=== PATIENT | female | born 1955 | race Caucasian/White ===

== ENCOUNTER 2022-09-29 00:45 | Outpatient (RCR) | payer MEDICARE, BC, SELFPAY ==
[2022-09-29] MEDS: Romosozumab-AQQG 210 MG/2.34 ML SYRINGE SC (11:21)
== END 2022-09-30 23:59 | disposition home or self-care (01) ==
LOC: INF 00:45
PROVIDERS: PCP Internal Medicine; Visit Provider Nurse Practitioner Acute Care
DX: M81.0 Age-related osteoporosis without current pathological fracture (principal)
CPT/HCPCS: 96372; J3590

== ENCOUNTER 2022-10-27 00:59 | Outpatient (RCR) | payer MEDICARE, BC, SELFPAY ==
[2022-10-27] MEDS: Romosozumab-AQQG 210 MG/2.34 ML SYRINGE SC (10:55)
== END 2022-10-31 23:59 | disposition home or self-care (01) ==
LOC: INF 00:59
PROVIDERS: PCP Internal Medicine; Visit Provider Nurse Practitioner Acute Care
DX: M81.0 Age-related osteoporosis without current pathological fracture (principal)
CPT/HCPCS: 96372; J3590

== ENCOUNTER 2022-11-24 01:28 | Outpatient (RCR) | payer MEDICARE, BC, SELFPAY ==
[2022-11-24] MEDS: Romosozumab-AQQG 210 MG/2.34 ML SYRINGE SC (11:07)
== END 2022-11-28 23:59 | disposition home or self-care (01) ==
LOC: INF 01:28
PROVIDERS: PCP Internal Medicine; Visit Provider Nurse Practitioner Acute Care
DX: M81.0 Age-related osteoporosis without current pathological fracture (principal)
CPT/HCPCS: 96372; J3590

== ENCOUNTER 2022-12-22 01:56 | Outpatient (RCR) | payer MEDICARE, BC, SELFPAY ==
[2022-12-22] MEDS: Romosozumab-AQQG 210 MG/2.34 ML SYRINGE SC (11:18)
== END 2022-12-29 23:59 | disposition home or self-care (01) ==
LOC: INF 01:56
PROVIDERS: PCP Internal Medicine; Visit Provider Nurse Practitioner Acute Care
DX: M81.0 Age-related osteoporosis without current pathological fracture (principal)
CPT/HCPCS: 96372; J3590

== ENCOUNTER 2023-01-19 01:18 | Outpatient (RCR) | payer MEDICARE, BC, SELFPAY ==
[2023-01-19] MEDS: Romosozumab-AQQG 210 MG/2.34 ML SYRINGE SC (11:16)
== END 2023-01-28 23:59 | disposition home or self-care (01) ==
LOC: INF 01:18
PROVIDERS: PCP Internal Medicine; Visit Provider Nurse Practitioner Acute Care
DX: M81.0 Age-related osteoporosis without current pathological fracture (principal)
CPT/HCPCS: 96372; J3590

== ENCOUNTER 2023-02-16 01:44 | Outpatient (RCR) | payer MEDICARE, BC, SELFPAY ==
[2023-02-16] MEDS: Romosozumab-AQQG 210 MG/2.34 ML SYRINGE SC (11:17)
== END 2023-02-28 23:59 | disposition home or self-care (01) ==
LOC: INF 01:44
PROVIDERS: PCP Internal Medicine; Visit Provider Nurse Practitioner Acute Care
DX: M81.0 Age-related osteoporosis without current pathological fracture (principal)
CPT/HCPCS: 96372; J3590

== ENCOUNTER 2023-03-16 01:45 | Outpatient (RCR) | payer MEDICARE, BC, SELFPAY ==
[2023-03-16] MEDS: Romosozumab-AQQG 210 MG/2.34 ML SYRINGE SC (06:57)
== END 2023-03-30 23:59 | disposition home or self-care (01) ==
LOC: INF 01:45
PROVIDERS: PCP Internal Medicine; Visit Provider Nurse Practitioner Acute Care
DX: M81.0 Age-related osteoporosis without current pathological fracture (principal)
CPT/HCPCS: 96372; J3590

== ENCOUNTER 2023-04-13 01:30 | Outpatient (RCR) | payer MEDICARE, BC, SELFPAY ==
[2023-04-13] MEDS: Romosozumab-AQQG 210 MG/2.34 ML SYRINGE SC (11:21)
== END 2023-04-30 23:59 | disposition home or self-care (01) ==
LOC: INF 01:30
PROVIDERS: PCP Internal Medicine; Visit Provider Nurse Practitioner Acute Care
DX: M81.0 Age-related osteoporosis without current pathological fracture (principal)
CPT/HCPCS: 96372; J3590

== ENCOUNTER 2023-05-11 01:29 | Outpatient (RCR) | payer MEDICARE, BC, SELFPAY ==
[2023-05-11] MEDS: Romosozumab-AQQG 210 MG/2.34 ML SYRINGE SC (11:28)
== END 2023-05-31 23:59 | disposition home or self-care (01) ==
LOC: INF 01:29
PROVIDERS: PCP Internal Medicine; Visit Provider Nurse Practitioner Acute Care
DX: M81.0 Age-related osteoporosis without current pathological fracture (principal)
CPT/HCPCS: 96372; J3590

== ENCOUNTER 2023-06-08 01:30 | Outpatient (RCR) | payer MEDICARE, BC, SELFPAY ==
[2023-06-08] MEDS: Romosozumab-AQQG 210 MG/2.34 ML SYRINGE SC (10:46)
== END 2023-06-30 23:59 | disposition home or self-care (01) ==
LOC: INF 01:30
PROVIDERS: PCP Internal Medicine; Visit Provider Nurse Practitioner Acute Care
DX: M81.0 Age-related osteoporosis without current pathological fracture (principal)
CPT/HCPCS: 96372; J3590

== ENCOUNTER 2023-07-06 01:12 | Outpatient (RCR) | payer MEDICARE, BC, SELFPAY ==
[2023-07-06] MEDS: Romosozumab-AQQG 210 MG/2.34 ML SYRINGE SC (08:26)
== END 2023-07-31 23:59 | disposition home or self-care (01) ==
LOC: INF 01:12
PROVIDERS: PCP Internal Medicine; Visit Provider Nurse Practitioner Acute Care
DX: M81.0 Age-related osteoporosis without current pathological fracture (principal)
CPT/HCPCS: 96372; J3590

== ENCOUNTER 2023-08-03 01:09 | Outpatient (RCR) | payer MEDICARE, BC, SELFPAY ==
[2023-08-03] MEDS: Romosozumab-AQQG 210 MG/2.34 ML SYRINGE SC (09:40)
== END 2023-08-30 23:59 | disposition home or self-care (01) ==
LOC: INF 01:09
PROVIDERS: PCP Internal Medicine; Visit Provider Nurse Practitioner Acute Care
DX: M81.0 Age-related osteoporosis without current pathological fracture (principal)
CPT/HCPCS: 96372; J3590

== ENCOUNTER 2023-11-09 02:23 | Outpatient (RCR) | payer MEDICARE, BC, SELFPAY ==
[2023-11-09] MEDS: Acetaminophen 325 MG TAB 650 MG PO (12:46)
[2023-11-09] MEDS: ZOLEDRONIC ACID/MANNITOL/WATER 5 MG/100 ML BTL 300 MG IVPB (12:54)
[2023-11-09] MEDS: Normal Saline Flush 10 ML SYR IVP (12:55)
== END 2023-11-29 23:59 | disposition home or self-care (01) ==
LOC: INF 02:23
PROVIDERS: PCP Internal Medicine; Visit Provider Nurse Practitioner Acute Care
DX: M81.0 Age-related osteoporosis without current pathological fracture (principal)
CPT/HCPCS: 36591; 96365; J3489